=== PATIENT | female | born 2000 | race African-American/Black ===

== ENCOUNTER 2021-06-25 09:49 | Emergency (ER) | payer OTHER, SELFPAY ==
[2021-06-25 10:03] VITALS: BP 107/64; PULSE 96; RESP 20; TEMP 37.1; O2SAT 99
--- NOTE | 2021-06-25 10:24 | ED.GENADULT ---
HPI - General Adult General Chief complaint: Eye Problems Stated complaint: Possible infected Eye/Possible yeast infection Time Seen by Provider: 06/25/21 10:24 Source: patient and RN notes reviewed Mode of arrival: ambulatory Limitations: no limitations History of Present Illness HPI narrative: 20-year-old -[place] female presents with complaints of left eye redness, swelling, irritation, burning, sensation of foreign body, and itching for 1 day. ?Yolanda reports awakening on Friday06/24/21 ?morning with LT eye matted together with greenish-yellow drainage and today symptoms worse when she awakens. ?No pain. ?No copious drainage. ?Exacerbating factors are eye opening and light. ?Relieving factors is closing eyes. Does wear glasses. ?No blurred vision, double vision, or pain in the eye with movement. ?The patient reports she was diagnosed with COVID-19 in November 2020. ?The patient reports she received 2 Moderna COVID-19 vaccines. ?The patient reports she is not waiting for the results of a COVID-19 lab test. The patient reports she does not have weakness, fatigue, or myalgia. ?The patient reports she does not have a new or worsening cough or shortness of breath. ?The patient reports she does not have any rhinorrhea, congestion, loss of taste or smell, sore throat, and diarrhea. ?Denies recent traveling. Denies concerns for COVID-19 or exposures. ?At this time, the patient is not suspected of having COVID-19. Complaints of intermittent vaginal irritation for the past 21 days. Yolanda reports vaginal irritation is similar to vaginal irritation she has had in the past. Nystatin cream as given per her [employer] in the past without relief. No significant pelvic pain. No dysuria. Denies fever or chills. No concerns for STDs. No history of STDs. No new partners. Sexually active. Denies unprotected intercourse with multiple partners. Does not douche. No known exacerbating factors. Denies hematuria or vaginal bleeding. Denies being , LMP 06/21/21 and current bleeding. No flank pain. Denies nausea, vomiting, and abdominal pain. Tolerating liquids well. Remains active. Some parts of this dictation were generated by voice recognition software and may contain typographical and/or grammatical inaccuracies. Related Data Home Medications Medication Instructions Recorded Confirmed multivitamin,[id number] 1 tablet PO DAILY 12/12/20 06/25/21 Allergies Allergy/AdvReac Type Severity Reaction Status Date / Time nickel Allergy Intermediate Rash Verified 02/21/21 14:51 Review of Systems Review of Systems: CONSTITUTIONAL: Denies fever, chills, sweats. EYES: Denies visual changes. Complains of LT eye redness, itching, swelling, and irritation. ENT: Complains of rhinorrhea, congestion. Denies sore throat, otalgia. CARDIOVASCULAR: Denies chest pain, palpitations, edema. RESPIRATORY: Denies dyspnea, wheezing, cough. GASTROINTESTINAL: Denies abdominal pain, nausea, vomiting, diarrhea. GENITOURINARY: Denies dysuria, hematuria, abnormal discharge. Complains of intermittent vaginal irritation. SKIN: Denies rash or itching. MUSCULOSKELETAL: Denies acute back pain, joint pain, or myalgia. NEUROLOGIC: Denies numbness or focal weakness. PSYCHIATRIC: Denies anxiety or depression. All systems reviewed & are unremarkable except as noted in HPI and below. [facility] Past Medical History Medical History Anemia History of chlamydia Surgical History Surgical History Gilman teeth removed Family History Family History Father Hypertension Mother Glaucoma Social History Social History Smoking status: Never smoker Tobacco type: cigarettes Second hand tobacco smoke exposure: No Alcohol intake: current
== END 2021-06-25 11:00 | disposition home or self-care (01) ==
PROVIDERS: Emergency Provider Nurse Practitioner Family
DX: S05.01XA Injury of conjunctiva and corneal abrasion without foreign body, right eye, initial encounter (principal); X58.XXXA Exposure to other specified factors, initial encounter; H10.9 Unspecified conjunctivitis; N89.8 Other specified noninflammatory disorders of vagina
CPT/HCPCS: 99213; A9270; G0463